=== PATIENT | male | born 1950 | race Caucasian/White ===

== ENCOUNTER 2017-02-18 03:36 | Emergency (ER) | payer OTHER ==
[2017-02-18 03:44] VITALS: TEMP 97.7; O2SAT 96
[2017-02-18] MEDS ORDERED: ONDANSETRON 4 MG/2 ML VIAL IVP ONE (03:58)
[2017-02-18] MEDS ORDERED: KETOROLAC 15 MG/1 ML SDV IVP ONE (04:03)
[2017-02-18] MEDS ORDERED: LIDOCAINE 1% 150 MG in NS 100 ML IV ONE (04:03)
[2017-02-18] MEDS ORDERED: NS 1,000 ML IV ONE (04:05)
--- NOTE | 2017-02-18 04:07 | EDPHY ---
H & P Stated Complaint: intermittent R flank pain, increased urinary frequecy Time Seen by Provider: 02/18/17 03:47 HPI/ROS: HPI The patient presents with right-sided flank pain which began yesterday at 2:00 a.m. and has been intermittent since about 1:00 a.m. this morning and now is constant. The pain is dull, it does not radiate, it is severe. Associated with diaphoresis. He has not had any nausea or vomiting. He has urinary frequency, however attributes this to his diabetes. He has no prior history of similar pain. He denies any hematuria.. REVIEW OF SYSTEMS Constitutional: No fever, no chills. Eyes: No discharge. ENT: No sore throat. Cardiovascular: No chest pain, no palpitations. Respiratory: No cough, no shortness of breath. Gastrointestinal: See HPI Genitourinary: No hematuria. Musculoskeletal: No back pain. Skin: No rashes. Neurological: No headache. PMHx: Diabetes Soc Hx: Lives at home with his PHYSICAL General Appearance: Alert, no distress Eyes: Pupils equal and round no pallor or injection ENT, Mouth: Mucous membranes moist Respiratory: There are no retractions, lungs are clear to auscultation Cardiovascular: Regular rate and rhythm Gastrointestinal: Abdomen is soft and non-tender, no masses, bowel sounds normal, no CVA tenderness Neurological: A&O, moves all extremities Skin: Warm and dry, no rashes Musculoskeletal: Neck is supple non tender Extremities: symmetrical, full range of motion Psychiatric: Patient is oriented X 3, there is no agitation Source: Patient Exam Limitations: No limitations - Personal History Current Tetanus/Diphtheria Vaccine: Yes - Medical/Surgical History Hx Asthma: No Hx Chronic Respiratory Disease: No Hx Diabetes: Yes Hx Cardiac Disease: No Hx Renal Disease: No Hx Cirrhosis: No Hx Alcoholism: No Hx HIV/AIDS: No Hx Splenectomy or Spleen Trauma: No Other PMH: PMHx: NIDDM. PSHx: L ankle surgery, appy - Social History Smoking Status: Never smoked Constitutional: Initial Vital Signs Temperature (C) 36.5 C 02/18/17 03:39 Heart Rate 73 02/18/17 03:39 Respiratory Rate 16 02/18/17 03:39 Blood Pressure 159/79 H 02/18/17 03:39 O2 Sat (%) 96 02/18/17 03:39 O2 Delivery Mode Room Air Allergies/Adverse Reactions: No Known Allergies Allergy (Unverified 01/01/16 12:07) Home Medications: Medication Instructions Recorded metFORMIN HCL [Glucophage] 500 mg PO 01/01/16 ASPIRIN 02/18/17 Ondansetron Odt [Zofran Odt 4 mg 4 mg PO Q4 PRN #10 tab 02/18/17 (*)] Tamsulosin HCl [Flomax 0.4 MG (*)] 0.4 mg PO DAILY #10 cap 02/18/17 Medical Decision Making - Diagnostics Imaging Results: CT scan abdomen pelvis with IV contrast demonstrates 3.5 mm stone in the distal ureter causing hydro nephrosis, discussed with Dr. Correa of Radiology. Imaging: Discussed imaging studies w/ locomotive repairer diesel Radiologist Differential Diagnosis: This is a 66-year-old man with diabetes who presents with about 1 day of intermittent right-sided flank pain. Differential diagnosis includes ureterolithiasis, pyelonephritis, less likely AAA. In the emergency room, the patient was monitored administered IV fluids and medication for his presumed ureterolithiasis. CT scan was performed which did demonstrate 3.5 mm stone in the distal ureter and UA revealed hematuria without any signs of infection. As I have discussed these findings with him. His pain is improved in the emergency room. He does not have any vomiting. He will be discharged with follow-up with Urology as needed. He was instructed to drink plenty of fluids. We will send him home with pain medication, anti-inflammatories, Zofran, famotidine. - Data Points Laboratory Results: Laboratory Results 02/18/17 03:55 02/18/17 03:55 02/18/17 02/18/17 02/18/17 03:55 03:55 03:55 WBC 12.84 10^3/uL H 10^3/uL (3.80-9.50) RBC 5.65 10^6/uL 10^6/uL (4.40-6.38) Hgb 15.4 g/dL g/dL (13.7-17.5) Hct 46.0 % % (40.0-51.0) MCV 81.4 fL L fL (81.5-99.8) MCH 27.3 pg L pg (27.9-34.1) MCHC 33.5 g/dL g/dL (32.4-36.7) RDW 13.2 % % (11.5-15.2) Plt Count 291 10^3/uL 10^3/uL (150-400) MPV 9.8 fL fL (8.7-11.7) Neut % (Auto) 75.4 % H % (39.3-74.2) Lymph % (Auto) 14.7 % L % (15.0-45.0) [place] % (Auto) 7.6 % % (4.5-13.0) Eos % (Auto) 1.5 % % (0.6-7.6) Baso % (Auto) 0.3 % % (0.3-1.7) Nucleat RBC Rel Count 0.0 % % (0.0-0.2) Absolute Neuts (auto) 9.68 10^3/uL H 10^3/uL (1.70-6.50) Absolute Lymphs (auto) 1.89 10^3/uL 10^3/uL (1.00-3.00) Absolute Monos (auto) 0.97 10^3/uL H 10^3/uL (0.30-0.80) Absolute Eos (auto) 0.19 10^3/uL 10^3/uL (0.03-0.40) Absolute Basos (auto) 0.04 10^3/uL 10^3/uL (0.02-0.10) Absolute Nucleated RBC 0.00 10^3/uL 10^3/uL (0-0.01) Immature Gran % 0.5 % % (0.0-1.1) Immature Gran # 0.07 10^3/uL 10^3/uL (0.00-0.10) Sodium 142 mEq/L mEq/L (134-144) Potassium 4.5 mEq/L mEq/L (3.5-5.2) Chloride 106 mEq/L mEq/L (97-110) Carbon Dioxide 23 mEq/l mEq/l (22-31) Anion Gap 13 mEq/L mEq/L (8-16) BUN 17 mg/dL mg/dL (7-23) Creatinine 1.3 mg/dL mg/dL (0.7-1.3) Estimated GFR 56 Glucose 174 mg/dL H mg/dL (70-100) Calcium 10.0 mg/dL mg/dL (8.5-10.4) Urine Color YELLOW Urine Appearance CLEAR Urine pH 5.0 (5.0-7.5) Ur Specific [place] 1.021 (1.002-1.030) Urine Protein NEGATIVE (NEGATIVE) Urine Ketones NEGATIVE (NEGATIVE) Urine Blood 3+ H (NEGATIVE) Urine Nitrate NEGATIVE (NEGATIVE) Urine Bilirubin NEGATIVE (NEGATIVE) Urine Urobilinogen NEGATIVE EU EU (0.2-1.0) Ur Leukocyte Esterase NEGATIVE (NEGATIVE) Urine RBC 15-25 /hpf H /hpf (0-3) Urine WBC 1-3 /hpf /hpf (0-3) Ur Epithelial Cells Not Reported Urine Mucus TRACE /lpf /lpf (NONE-1+) Urine Glucose NEGATIVE (NEGATIVE) Medications Given: Discontinued Medications Hydrocodone Bitart/Acetaminophen ([place] 5/325mg Prepack#6) 1 btl TAKEHOME EDNOW ONE Stop: 02/18/17 05:21 Last Admin: 02/18/17 05:20 Dose: 1 btl Lidocaine HCl 150 mg/ Sodium (Chloride) 115 mls @ 600 mls/hr IV EDNOW ONE Stop: 02/18/17 04:14 Last Admin: 02/18/17 04:35 Dose: 115 mls Sodium Chloride (Ns) 1,000 mls @ 0 mls/hr IV ONCE ONE PRN Reason: Wide Open Stop: 02/18/17 04:06 Last Admin: 02/18/17 04:00 Dose: 1,000 mls Ketorolac Tromethamine (Toradol) 15 mg IVP EDNOW ONE Stop: 02/18/17 04:04 Last Admin: 02/18/17 04:10 Dose: 15 mg Ondansetron HCl (Zofran) 4 mg IVP EDNOW ONE Stop: 02/18/17 03:59 Last Admin: 02/18/17 04:05 Dose: 4 mg Departure - Departure Disposition: Home, Routine, Self-Care Clinical Impression: Renal colic on right side Condition: Good Instructions: Hydrocodone/Acetaminophen (By mouth), Renal Colic (ED), How to Strain Your Urine (ED) Additional Instructions: 1. Take Ibuprofen or Motrin 600 mg by mouth three times a day. 2. Tylenol 1 g by mouth 3 times a day 3. Flomax as directed 4. Zofran as needed for nausea 5. Strain urine as directed 6. Return to the Emergency Department for intractable pain, fever or vomiting. 7. Followup with the urologist you have been referred to for unimproved symptoms. Referrals: Norma Pineda MD [Primary Care Provider] - As per Instructions Ru Sotomayor MD [Medical Doctor] - As per Instructions Prescriptions: Ondansetron Odt [Zofran Odt 4 mg (*)] 4 mg PO Q4 PRN #10 tab PRN Reason: Nausea/Vomiting, Can'T Take Po Tamsulosin HCl [Flomax 0.4 MG (*)] 0.4 mg PO DAILY #10 cap
[2017-02-18 04:10] LABS: % IMMATURE GRANULYOCYTES 0.5 % (0.0-1.1); ABSOLUTE IMMATURE GRANULOCYTES 0.07 10^3/uL (0.00-0.10); ADD DIFF? NO; ADD MORPH? NO; ADD SCAN? NO; ATYPICAL LYMPHOCYTE FLAG 0 (0-99); FRAGMENT RBC FLAG 0 (0-99); HEMOGLOBIN 15.4 g/dL (13.7-17.5); LEFT SHIFT FLG 0 (0-99); LIPEMIA HEMOLYSIS FLAG 80 (0-99); MEAN CELL HEMOGLOBIN 27.3 pg (27.9-34.1); MEAN CELL HEMOGLOBIN CONCENTR. 33.5 g/dL (32.4-36.7); MEAN CELL VOLUME 81.4 fL (81.5-99.8); MEAN PLATELET VOLUME 9.8 fL (8.7-11.7); PLATELET CLUMPS FLAG 0 (0-99); PLATELET COUNT 291 10^3/uL (150-400); RED BLOOD CELL COUNT 5.65 10^6/uL (4.40-6.38); RED CELL DISTRIBUTION WIDTH 13.2 % (11.5-15.2)
[2017-02-18 04:17] LABS: COLOR YELLOW; LEUKOCYTE ESTERASE,URINE NEGATIVE (NEGATIVE); NITRITE,URINE NEGATIVE (NEGATIVE)
[2017-02-18 04:19] LABS: ANION GAP 13 mEq/L (8-16); CARBON DIOXIDE 23 mEq/l (22-31); CHLORIDE 106 mEq/L (97-110); CREATININE 1.3 mg/dL (0.7-1.3); GLOMERULAR FILTRATION RATE 56; GLUCOSE 174 mg/dL (70-100); POTASSIUM 4.5 mEq/L (3.5-5.2); SODIUM 142 mEq/L (134-144)
[2017-02-18 04:26] LABS: MUCUS TRACE /lpf (NONE-1+); RBC,URINE 15-25 /hpf (0-3)
[2017-02-18 04:58] VITALS: RESP 18
[2017-02-18 05:19] VITALS: BP 131/86; PULSE 76
[2017-02-18] MEDS ORDERED: HYDROCOD/APAP 5/325 PREPACK#6 BTL TAKEHOME ONE (05:20)
== END 2017-02-18 05:33 | disposition home or self-care (01) ==
DX: N23 Unspecified renal colic (principal); E11.9 Type 2 diabetes mellitus without complications; Z79.82 Long term (current) use of aspirin; Z79.84 Long term (current) use of oral hypoglycemic drugs
CPT/HCPCS: 96365; J1885; J2405

== ENCOUNTER → 2017-04-03 | Outpatient (CLI) | payer OTHER, MEDICARE | LOC: CIMAGING 13:10 | PROVIDERS: ATTEND Internal Medicine | DX: R91.8 Other nonspecific abnormal finding of lung field (principal); I25.10 Atherosclerotic heart disease of native coronary artery without angina pectoris; E27.9 Disorder of adrenal gland, unspecified; K76.0 Fatty (change of) liver, not elsewhere classified; N28.1 Cyst of kidney, acquired | CPT/HCPCS: 71250-PO ==

== ENCOUNTER → 2017-05-24 | Outpatient (CLI) | payer OTHER, MEDICARE | LOC: BHFA 14:00 | PROVIDERS: ATTEND Internal Medicine Cardiovascular Disease | DX: I25.10 Atherosclerotic heart disease of native coronary artery without angina pectoris (principal) | CPT/HCPCS: 78452; 93017; A9500; J2785 ==

== ENCOUNTER → 2017-10-12 | Outpatient (CLI) | payer OTHER, MEDICARE | LOC: FIMAGING 11:59 | PROVIDERS: ATTEND Internal Medicine | DX: R91.1 Solitary pulmonary nodule (principal); I25.10 Atherosclerotic heart disease of native coronary artery without angina pectoris ==

== ENCOUNTER → 2018-03-14 | Outpatient (CLI) | payer OTHER, MEDICARE | LOC: FIMAGING 09:12 | PROVIDERS: ATTEND Internal Medicine Pulmonary Disease | DX: R91.1 Solitary pulmonary nodule (principal); I25.83 Coronary atherosclerosis due to lipid rich plaque | CPT/HCPCS: 82607-90; 82784-90; 83516-90; 84481-90 ==